=== PATIENT | male | born 1990 | race Caucasian/White ===

== ENCOUNTER → 2022-03-31 13:06 | Outpatient (CLI) | payer OTHER, SELFPAY ==
--- NOTE | 2022-03-31 13:10 | DI.ECHO.S_ITS ---
[facility] +---------+ : : [address] : : : : [address] : : : : [place], : : : : [place] [id number] : : : : Phone: [phone] + [phone] Echocardiogram Report + + :Name: VIPUL BRUNNER Study Date: 03/31/2022 Height: 72 in : :[facility] ReadingLocation: Weight: 225 lb : : Gender: Male BSA: 2.2 m2 : :: 1990 Age: 32 yrs BP: 177/63 mmHg: :Reason For Study: Hypertension : :Ordering Physician: YAZ, : :BOLA Performed By: Gagan Amin : :Referring: BOLA MUKHERJEE : + + Interpretation Summary The left ventricle is severely dilated. Left ventricular systolic function is normal. The ejection fraction is estimated to be 50-55%. There are no focal wall motion abnormalities. The right ventricle is normal in size and function. Pulmonary artery pressures cannot be estimated because of the lack of a measurable TR jet velocity. Both atria are normal in size. A bicuspid aortic valve cannot be excluded. The aortic valve opens well. There is moderate to severe aortic regurgitation. There is an eccentric jet of aortic insufficiency directed against the anterior mitral leaflet. There is significant holodiastolic flow reversal in the descending thoracic aorta. There is fluttering of the anterior MV leaflet due to aortic insufficiency. There is no other significant valvular heart disease. The aortic root is normal size. Procedure: A two-dimensional transthoracic echocardiogram with color flow and Doppler was performed. The study quality was technically adequate. There is no prior echocardiogram noted for this patient. Left Ventricle: The left ventricle is severely dilated. There is normal left ventricular wall thickness. Left ventricular systolic function is normal. The ejection fraction is estimated to be 50-55%. There are no focal wall motion abnormalities. Diastolic function could not be accurately assessed due to confounding valvular disease. Right Ventricle: The right ventricle is normal in size and function. Atria: Both atria are normal in size. The interatrial septum grossly appears intact with no obvious evidence for an atrial septal defect. Mitral Valve: The mitral valve is normal in structure and function. There is trace mitral regurgitation. Aortic Valve: A bicuspid aortic valve cannot be excluded. The aortic valve opens well. There is moderate to severe aortic regurgitation. There is an eccentric jet of aortic insufficiency directed against the anterior mitral leaflet. There is significant holodiastolic flow reversal in the descending thoracic aorta. Tricuspid Valve: The tricuspid valve is normal in structure and function. There is trace tricuspid regurgitation. Pulmonary artery pressures cannot be estimated because of the lack of a measurable TR jet velocity. Pulmonic Valve: The pulmonic valve is normal in structure and function. There is no pulmonic valvular regurgitation. There is no other significant valvular heart disease. Great Vessels: The aortic root is normal size. The dimensions of the ascending aorta are normal. The IVC is of normal diameter and collapses greater than 50% with a sniff. This suggests a low right atrial pressure of 3 mm Hg. Pericardium/ Pleura There is no pericardial effusion. There is no pleural effusion. MMode/2D Measurements & Calculations LVIDd: 7.0 cm LVOT diam: 3.2 cm LVIDs: 5.1 cm Ao root diam: 3.8 cm IVSd: 1.0 cm asc Aorta Diam: 3.3 cm LVPWd: 1.1 cm LV valles. diameter/BSA (cm/m^2): 3.1 LV sys. diameter/BSA (cm/m^2): 2.3 FS: 27.3 % LA A4 area: 20.2 cm2 RA long axis: 5.4 cm LA length (vol): 5.2 cm RA area: 19.2 cm2 RA vol: 58.5 ml RA : 26.1 ml/m2 TAPSE: 3.0 cm LVAs ap4: 72.2 cm2 LVLs ap4: 10.9 cm Doppler Measurements & Calculations Ao V2 max: 185.9 cm/sec LVOT Max Keshav: 118.7 cm/sec Ao V2 mean: 121.5 cm/sec LV V1 max P.6 mmHg Ao V2 VTI: 38.1 cm LV V1 VTI: 29.3 cm Ao max P.8 mmHg Ao mean P.8 mmHg JENNIFER(I,D): 6.0 cm2 AI P1/2t: 283.3 msec JENNIFER(V,D): 5.0 cm2 AI dec slope: 417.2 cm/sec2 JENNIFER indexed to BSA (cm^2/m^2): 2.7 sev ratio: 0.77 Med Peak E' Keshav: 10.0 cm/sec SV(LVOT): 230.6 ml Lat Peak E' Keshav: 10.8 cm/sec Reading Physician:03:22 PM
--- NOTE | 2022-03-31 13:33 | DI.ECHO.S_ITS ---
Interpretation Summary The left ventricle is severely dilated. Left ventricular systolic function is normal. The ejection fraction is estimated to be 50-55%. There are no focal wall motion abnormalities. The right ventricle is normal in size and function. Pulmonary artery pressures cannot be estimated because of the lack of a measurable TR jet velocity. Both atria are normal in size. A bicuspid aortic valve cannot be excluded. The aortic valve opens well. There is moderate to severe aortic regurgitation. There is an eccentric jet of aortic insufficiency directed against the anterior mitral leaflet. There is significant holodiastolic flow reversal in the descending thoracic aorta. There is fluttering of the anterior MV leaflet due to aortic insufficiency. There is no other significant valvular heart disease. The aortic root is normal size. Procedure: A two-dimensional transthoracic echocardiogram with color flow and Doppler was performed. The study quality was technically adequate. There is no prior echocardiogram noted for this patient. Left Ventricle: The left ventricle is severely dilated. There is normal left ventricular wall thickness. Left ventricular systolic function is normal. The ejection fraction is estimated to be 50-55%. There are no focal wall motion abnormalities. Diastolic function could not be accurately assessed due to confounding valvular disease. Right Ventricle: The right ventricle is normal in size and function. Atria: Both atria are normal in size. The interatrial septum grossly appears intact with no obvious evidence for an atrial septal defect. Mitral Valve: The mitral valve is normal in structure and function. There is trace mitral regurgitation. Aortic Valve: A bicuspid aortic valve cannot be excluded. The aortic valve opens well. There is moderate to severe aortic regurgitation. There is an eccentric jet of aortic insufficiency directed against the anterior mitral leaflet. There is significant holodiastolic flow reversal in the descending thoracic aorta. Tricuspid Valve: The tricuspid valve is normal in structure and function. There is trace tricuspid regurgitation. Pulmonary artery pressures cannot be estimated because of the lack of a measurable TR jet velocity. Pulmonic Valve: The pulmonic valve is normal in structure and function. There is no pulmonic valvular regurgitation. There is no other significant valvular heart disease. Great Vessels: The aortic root is normal size. The dimensions of the ascending aorta are normal. The IVC is of normal diameter and collapses greater than 50% with a sniff. This suggests a low right atrial pressure of 3 mm Hg. Pericardium/ Pleura There is no pericardial effusion. There is no pleural effusion. MMode/2D Measurements & Calculations LVIDd: 7.0 cm LVOT diam: 3.2 cm LVIDs: 5.1 cm Ao root diam: 3.8 cm IVSd: 1.0 cm asc Aorta Diam: 3.3 cm LVPWd: 1.1 cm LV valles. diameter/BSA (cm/m^2): 3.1 LV sys. diameter/BSA (cm/m^2): 2.3 FS: 27.3 % LA A4 area: 20.2 cm2 RA long axis: 5.4 cm LA length (vol): 5.2 cm RA area: 19.2 cm2 RA vol: 58.5 ml RA : 26.1 ml/m2 TAPSE: 3.0 cm LVAs ap4: 72.2 cm2 LVLs ap4: 10.9 cm Doppler Measurements & Calculations Ao V2 max: 185.9 cm/sec LVOT Max Keshav: 118.7 cm/sec Ao V2 mean: 121.5 cm/sec LV V1 max P.6 mmHg Ao V2 VTI: 38.1 cm LV V1 VTI: 29.3 cm Ao max P.8 mmHg Ao mean P.8 mmHg JENNIFER(I,D): 6.0 cm2 AI P1/2t: 283.3 msec JENNIFER(V,D): 5.0 cm2 AI dec slope: 417.2 cm/sec2 JENNIFER indexed to BSA (cm^2/m^2): 2.7 sev ratio: 0.77 Med Peak E' Keshav: 10.0 cm/sec SV(LVOT): 230.6 ml Lat Peak E' Keshav: 10.8 cm/sec Reading Physician:03:22 PM
--- NOTE | 2022-03-31 17:37 | DI.NM.S_ITS ---
DATE OF SERVICE: 03/31/2022 PROCEDURE: Exercise stress test. INDICATION: Chest pain, hypertension, PACs. CARDIAC STRESS: The patient underwent exercise stress test under the supervision of an attending staff. He walked on Vahid protocol for 12 minutes and 01 seconds, achieved maximum heart rate of 179, which was 95 percent of target heart rate. Achieved 12.8 METs of workload and functional aerobic impairment positive 12 percent. Baseline blood pressure 144/60. Peak blood pressure 210/60. Baseline rhythm sinus with left ventricular hypertrophy and PACs. During exercise and peak exercise, the patient had T-wave inversion in inferior leads and leads V6 without any significant ST depression. Overall PACs got suppressed during peak exercise. No ventricular arrhythmias. There was a late recovery. Within 3 minutes, T-wave inversion got resolved to the baseline. However, even after 9 minutes in the recovery, heart rate was 106 beats per minute. CONCLUSION: 1. Exercise stress test did not reveal any obvious inducible ischemic changes. 2. Normal hemodynamic response during exercise. However, abnormal recovery. Even after 9 minutes into the recovery, heart rate was 106 beats per minute. Resting frequent premature atrial contractions, which did not get worse during peak exercise. Returned back in recovery. No obvious ventricular tachycardia. Functional aerobic impairment positive 12 percent. Achieved 12.8 metabolic equivalents of workload. Correlate clinically. Jeremias Gunn - Mendez/tj doc#: [id number]/job#: [id number] dd: 03/31/2022 17:13:00 dt: 03/31/2022 17:22:00 DICTATING MD/COPIES TO: Pamela Ding MD COPIES MNE: JESSIE;
== END ==
PROVIDERS: Referring Provider Internal Medicine Cardiovascular Disease; Visit Provider Internal Medicine Cardiovascular Disease
DX: I35.1 Nonrheumatic aortic (valve) insufficiency (principal); I49.1 Atrial premature depolarization; I10 Essential (primary) hypertension
CPT/HCPCS: 93017; 93306

== ENCOUNTER 2023-02-08 12:30 | Outpatient (RCR) | payer OTHER, SELFPAY | END 2023-02-08 14:30 | LOC: CAR 12:30 | PROVIDERS: PCP Nurse Practitioner Family; Referring Provider Internal Medicine Cardiovascular Disease; Visit Provider Internal Medicine Cardiovascular Disease | DX: Z95.4 Presence of other heart-valve replacement (principal) | CPT/HCPCS: 93798 ==

== ENCOUNTER → 2023-06-01 08:20 | Outpatient (CLI) | payer OTHER, SELFPAY ==
--- NOTE | 2023-06-01 | DI.ECHO.S_ITS ---
[facility] +---------+ : : [address] : : : : [id number] : : : : Phone: [phone]---------+ Echocardiogram Report + + :Name: VIPUL BRUNNER Study Date: 06/01/2023 Height: 72 in : :[facility] ReadingLocation: Weight: 230 lb : : Gender: Male BSA: 2.3 m2 : :: 1990 Age: 33 yrs BP: 115/73 mmHg: :Reason For Study: ROSS PROCEDURE, HEART VALVE REPLACEMENT : :Ordering Physician: YAZ, : :BOLA Performed By: Minnie Vasquez : :Referring: BOLA ADKINS : + + Interpretation Summary 1) Normal left ventricular thickness, size, and systolic function (EF 55-60%). 2) Normal right ventricular size with low normal function. 3) A homograft is present in aortic valve position that opens well (mean gradient 3mmHg). There is trace aortic regurgitation. 4) A homograft is present in the pulmonic valve position that opens well (mean gradient 5.6mmHg). There is trace pulmonic regurgitation. 5) Compared to the Echo done 03/31/2022, homografts are present in aortic and pulmonic valve positions and are functioning well. Procedure: A two-dimensional transthoracic echocardiogram with color flow and Doppler was performed. The study quality was technically adequate. Comparison is made with the echocardiogram of 03/31/2022. The patient was in sinus rhythm with heart rates between 61-71 bpm during the exam. Left Ventricle: The left ventricle is normal in size and wall thickness. The ejection fraction is estimated to be 55-60%. Septal motion is consistent with post-operative state. Diastolic parameters suggest probable normal left ventricular diastolic function and normal filling pressures. Right Ventricle: The right ventricle is grossly normal size. Right ventricular systolic function is at the lower limits of normal. Atria: The left atrial size is normal. Right atrial size is normal. There is no Doppler evidence for an interatrial shunt. Mitral Valve: The anterior mitral valve leaflet appears elongated with grossly normal valve motion. There is trace mitral regurgitation. Aortic Valve: The aortic valve opens well. A homograft is present. There is no aortic valve stenosis. The peak aortic velocity is 1.2 m/sec. The aortic valve mean gradient is 3 mmHg. There is trace aortic regurgitation. Tricuspid Valve: The tricuspid valve is normal in structure and function. There is trace tricuspid regurgitation. Pulmonic Valve: A homograft is present. Max pulmonic valve velocity of 1.56m/s with a mean pressure gradient of 5.6mmHg. There is trace pulmonic regurgitation. Great Vessels: The aortic root is normal size. The dimensions of the ascending aorta are normal. The IVC is dilated (diameter is greater than 2.1 cm) yet it collapses greater than 50% with a sniff. This suggests a right atrial pressure of 8 mm Hg. Pericardium/ Pleura There is no pericardial effusion. There is no pleural effusion. MMode/2D Measurements & Calculations LVIDd: 5.2 cm LVOT diam: 2.6 cm LVIDs: 3.3 cm Ao root diam: 3.6 cm FS: 36.8 % asc Aorta Diam: 3.6 cm EPSS: 0.33 cm Ao Arch Diam (Prox Trans): 2.6 cm IVSd: 0.70 cm LVPWd: 0.77 cm LV valles. diameter/BSA (cm/m^2): 2.3 LV sys. diameter/BSA (cm/m^2): 1.5 LA A2 area: 17.8 cm2 RA long axis: 4.9 cm LA A4 area: 17.3 cm2 RA area: 18.5 cm2 LA length (vol): 4.8 cm RA vol: 59.5 ml LA vol: 54.4 ml RA : 26.3 ml/m2 LA vol index: 24.1 ml/m2 IVC diam: 2.1 cm RVD1 (basal): 4.3 cm TAPSE: 1.7 cm Doppler Measurements & Calculations Ao V2 max: 122.7 cm/sec LVOT Max Keshav: 81.9 cm/sec Ao V2 mean: 84.1 cm/sec LV V1 max P.7 mmHg Ao max P.0 mmHg LV V1 VTI: 16.7 cm Ao mean P.2 mmHg JENNIFER(I,D): 3.4 cm2 Ao V2 VTI: 25.6 cm JENNIFER(V,D): 3.5 cm2 sev ratio: 0.65 JENNIFER indexed to BSA (cm^2/m^2): 1.5 MV E max keshav: 61.7 cm/sec PA V2 max: 156.3 cm/sec MV A max keshav: 33.2 cm/sec PA V2 mean: 113.3 cm/sec MV E/A: 1.9 PA mean P.6 mmHg Med Peak E' Keshav: 9.2 cm/sec PA pr(Accel): 31.0 mmHg E/E' med: 6.7 Lat Peak E' Keshav: 13.1 cm/sec E/E' lat: 4.7 E/e' average: 5.7 MV dec time: 0.19 sec SV(LVOT): 87.7 ml Reading Physician:01:06 PM
== END ==
PROVIDERS: PCP Nurse Practitioner Family; Referring Provider Internal Medicine Cardiovascular Disease; Visit Provider Internal Medicine Cardiovascular Disease
DX: I35.1 Nonrheumatic aortic (valve) insufficiency (principal); Z95.4 Presence of other heart-valve replacement
CPT/HCPCS: 93306